=== PATIENT | female | born 1945 | race Caucasian/White ===

== ENCOUNTER 2020-10-27 11:30 | Emergency (ER) | payer MEDICARE ==
--- NOTE | 2020-10-27 12:30 | EDM.PDOC ---
ED HPI GENERAL MEDICAL PROBLEM - General Chief Complaint: General Stated Complaint: LOWER LIP IS SWOLLEN, DIFFICULT TO TALK Time Seen by Provider: 10/27/20 12:15 Source of Information: Reports: Patient, Family. Denies: Old Records History Limitations: Reports: Other (limited records) - History of Present Illness INITIAL COMMENTS - FREE TEXT/NARRATIVE: 75 yo female here with her for slurred speech that seems to be worsening over the past several weeks associated with some difficulty swallowing and some drooling. No other deficits per patient and . Has a pHx of a head bleed from which she fully recovered before these new sx's began. Did hit her head with a fall in August and these sx's possibly began after that. No CLEMENT. Has not been seen before today for these sx's. Lives here 1/2 the year and has no doctor locally. Onset: Gradual Onset Date: 09/25/20 Duration: Week(s): (~4), Getting Worse (slowly) Location: Reports: Face (speech and swallowing issues) Quality: Reports: Other (no pain reported) Severity: Moderate Worsens with: Reports: Other (? time) Context: Reports: Other (See HPI) Associated Symptoms: Reports: No Other Symptoms. 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: Other (see below) (none) - Related Data Allergies Allergy/AdvReac Type Severity Reaction Status Date / Time Sulfa (Sulfonamide Allergy Severe Respiratory Verified 10/27/20 11:46 Antibiotics) Distress lisinopril Allergy Rash Verified 10/27/20 11:46 Home Meds: Home Meds Albuterol [Ventolin HFA] 2 puff INH Q4H PRN 10/13/16 [History] Cetirizine [ZyrTEC] 1 tab PO DAILY 10/13/16 [History] Desonide 1 strip TOP BID 10/13/16 [History] Metoprolol Succinate [Toprol XL] 150 mg PO DAILY 10/13/16 [History] Multivitamin [Multivitamins] 1 cap PO DAILY 10/13/16 [History] Simvastatin [Zocor] 40 mg PO BEDTIME 10/13/16 [History] Zolpidem Tartrate [Ambien] 10 mg PO BEDTIME PRN 10/13/16 [History] Cholecalciferol (Vitamin D3) [Vitamin D3] 2,000 unit PO DAILY 10/27/20 [History] Vit A/Vit C/Vit E/Zinc/Copper [Preservision] 1 tab PO BID 10/27/20 [History] hydroCHLOROthiazide [Hydrochlorothiazide] 25 mg PO DAILY 10/27/20 [History] Past Medical History HEENT History: Reports: Cataract, Impaired Vision Cardiovascular History: Reports: High Cholesterol, Hypertension 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 - Past Surgical History HEENT Surgical History: Reports: Cataract Surgery Female Surgical History: Reports: Oophorectomy Musculoskeletal Surgical History: Reports: Knee Replacement Social & Family History - Tobacco Use Tobacco Use Status *Q: Never Tobacco User - Caffeine Use Caffeine Use: Reports: Coffee - Alcohol Use Days Per Week of Alcohol Use: 7 Number of Drinks Per Day: 1 Total Drinks Per Week: 7 - Recreational Drug Use Recreational Drug Use: No ED ROS GENERAL - Review of Systems Review Of Systems: See Below Constitutional: Reports: No Symptoms HEENT: Reports: No Symptoms Respiratory: Reports: No Symptoms Cardiovascular: Denies: Palpitations GI/Abdominal: Reports: No Symptoms : Reports: No Symptoms Musculoskeletal: Reports: No Symptoms Skin: Reports: No Symptoms Neurological: Reports: Trouble Speaking. Denies: Confusion, Headache Psychiatric: Reports: No Symptoms ED EXAM, GENERAL - Physical Exam Exam: See Below Exam Limited By: No Limitations General Appearance: Alert, WD/WN, No Apparent Distress Eye Exam: Bilateral Eye: EOMI, Normal Inspection, PERRL Ears: Normal External Exam, Normal Canal, Hearing Grossly Normal, Normal TMs Ear Exam: Bilateral Ear: Auricle Normal, Canal Normal, TM normal Nose: Normal Inspection, No Blood Throat/Mouth: Normal Inspection, Normal Lips, Normal Oropharynx, No Airway Compromise. No: Normal Voice (slurred speech) Head: Atraumatic, Normocephalic Neck: Normal Inspection Respiratory/Chest: No Respiratory Distress, Lungs Clear, Normal Breath Sounds, No Accessory Muscle Use Cardiovascular: Regular Rate, Rhythm, No Edema. No: Bradycardia, Tachycardia, Irregularly Irregular GI/Abdominal: Soft, Non-Tender Extremities: Normal Inspection, Normal Range of Motion, Non-Tender, No Pedal Edema Neurological: Alert, Oriented, Normal Cognition, Other (speech is slurred, but comprehensible, no other deficits except possibly a mild L visual field deficit. ) Psychiatric: Normal Affect, Normal Mood Skin Exam: Warm, Dry, Intact, Normal Color, No Rash Course - Vital Signs Last Recorded V/S: Last Vital Signs Temp 36.3 C 10/27/20 11:51 Pulse 60 10/27/20 12:40 Resp 18 10/27/20 11:51 BP 140/56 L 10/27/20 12:40 Pulse Ox 99 10/27/20 12:40 - Orders/Labs/Meds Orders: Active Orders 24 hr Category Date Time Status Cardiac Monitoring [RC] .As Directed Care 10/27/20 12:24 Active Consult to Speech Language Pathology [ZOO CARETAKER Evaluation Cons 10/27/20 13:37 Active and Treatment] [CONS] Routine Meds: Medications Discontinued Medications Generic Name Dose Route Start Last Admin Trade Name Freq PRN Reason Stop Dose Admin Aspirin 324 mg 10/27/20 13:36 Aspirin 81 Mg Tab.Chew PO 10/27/20 13:37 ONETIME ONE - Radiology Interpretation Free Text/Narrative:: Head CT scan-low attenuation in the R basal ganglia Departure - Departure Time of Disposition: 14:00 Disposition: Home, Self-Care 01 Condition: Fair Clinical Impression: Dysarthria due to acute stroke Clinical Impression: (Ruled Out): Dysarthria - Discharge Information *PRESCRIPTION DRUG MONITORING PROGRAM REVIEWED*: Not Applicable *COPY OF PRESCRIPTION DRUG MONITORING REPORT IN PATIENT ALEM: Not Applicable Instructions: Eating Plan After Stroke, Speech-Language Therapy After a Stroke Referrals: PCP,None [Primary Care Provider] - Forms: ED Department Discharge Additional Instructions: I have put in referrals for you for family medicine at [facility], neurology, and speech therapy. Someone will notify you of appt times for these. Add a baby aspirin daily to your current medications starting tomorrow, always take this with a meal to protect your stomach. Return as needed. Sepsis Event Note (ED) - Evaluation Sepsis Screening Result: No Definite Risk - Focused Exam Vital Signs: Vital Signs Temp Pulse Resp BP Pulse Ox 10/27/20 12:40 60 140/56 L 99 10/27/20 12:10 58 L 138/51 L 99 10/27/20 11:51 36.3 C 66 18 154/52 H 99 10/27/20 11:45 36.3 C 66 18 154/52 H 99 - My Orders Last 24 Hours: My Active Orders 10/27/20 12:24 Cardiac Monitoring [RC] .As Directed 10/27/20 13:37 Consult to Speech Language Pathology [ZOO CARETAKER Evaluation and Treatment] [CONS] Routine - Assessment/Plan Last 24 Hours: My Active Orders 10/27/20 12:24 Cardiac Monitoring [RC] .As Directed 10/27/20 13:37 Consult to Speech Language Pathology [ZOO CARETAKER Evaluation and Treatment] [CONS] Routine
--- NOTE | 2020-10-27 13:10 | CT ---
Head wo Cont CLINICAL HISTORY: Slurred speech COMPARISON: None TECHNIQUE: Transverse scans were obtained from the base of the skull through the vertex without IV contrast on a multislice, multidetector CT scanner. Auto dosage reduction and iterative reconstruction techniques employed. FINDINGS: There is an ill-defined area of low-attenuation in the right basal ganglia the region of the posterior limb of the internal capsule. There is some scattered low-attenuation in the periventricular and subcortical white matter. There is no mass effect, hemorrhage, or extraaxial collection. The basal cisterns and sulci over the convexities are prominent. The ventricles are prominent. IMPRESSION: Small focus of low-attenuation in the right basal ganglia. Previous ischemic infarct is not excluded. No hemorrhage Chronic ischemic microvascular changes Moderate atrophy
[2020-10-27 13:15] VITALS: PULSE 60
[2020-10-27] MEDS ORDERED: Aspirin 81 MG Tab.Chew PO ONE (13:36)
[2020-10-27 14:12] VITALS: BP 133/60
== END 2020-10-27 14:19 | disposition home or self-care (01) ==
LOC: JP.ED 11:30
DX: I69.322 Dysarthria following cerebral infarction (principal); E78.00 Pure hypercholesterolemia, unspecified; I10 Essential (primary) hypertension; Z79.899 Other long term (current) drug therapy; Z88.2 Allergy status to sulfonamides; Z88.8 Allergy status to other drugs, medicaments and biological substances
CPT/HCPCS: 70450; 99285; A9270